=== PATIENT | male | born 1960 | race Caucasian/White ===

== ENCOUNTER 2022-07-15 07:35 | Day surgery (SDC) | payer OTHER ==
[2022-07-15] MEDS ORDERED: SODIUM CHLORIDE 0.9% 1,000 ML IV STA (07:49)
[2022-07-15 07:58] LABS: BASOPHILS % (AUTO) 0.2 %; EOSINOPHILS % (AUTO) 0.1 %; HCT - HEMATOCRIT 48.2 % (42.0-52.0); HGB - HEMOGLOBIN 16.4 g/dL (14.0-18.0); LYMPHOCYTES # (AUTO) 1.3 10^3/uL (1.5-3.5); LYMPHOCYTES % (AUTO) 7.8 %; MEAN CORPUSCULAR HEMOGLOBIN 29.9 pg (27.0-31.0); MONOCYTES # (AUTO) 0.9 10^3/uL (0.0-1.0); NEUTROPHILS # (AUTO) 14.8 10^3/uL (1.5-6.6); NEUTROPHILS % (AUTO) 86.6 %; PLT - PLATELET COUNT 338 10^3/uL (130-450); RED BLOOD COUNT 5.48 10^6/uL (4.70-6.10); RED CELL DISTRIBUTION WIDTH 12.8 % (12.0-15.0); WHITE BLOOD COUNT 17.2 x10^3/uL (4.8-10.8)
[2022-07-15 08:05] LABS: BILIRUBIN,URINE NEGATIVE (NEGATIVE); GLUCOSE, URINE (UA) NEGATIVE (NEGATIVE); KETONES,URINE (UA) 40 mg/dL (NEGATIVE); LEUKOCYTE ESTERASE, URINE NEGATIVE (NEGATIVE); NITRITE,URINE NEGATIVE (NEGATIVE); OCCULT BLOOD,URINE SMALL (NEGATIVE); PROTEIN,URINE NEGATIVE (NEGATIVE); UROBILINOGEN,URINE 0.2 (NORMAL) E.U./dL (NORMAL)
[2022-07-15 08:06] LABS: CLARITY,URINE CLEAR (CLEAR)
[2022-07-15] MEDS ORDERED: ONDANSETRON 4 MG/2 ML VIAL IVP STA (08:10)
[2022-07-15 08:12] LABS: ALBUMIN 4.7 g/dL (3.2-5.5); ALBUMIN/GLOBULIN RATIO 1.5 (1.0-2.2); BILIRUBIN,TOTAL 1.5 mg/dL (0.2-1.0); CALCIUM 9.3 mg/dL (8.5-10.3); CREATININE 0.8 mg/dL (0.6-1.2); POTASSIUM 3.3 mmol/L (3.5-5.0); TOTAL PROTEIN 7.9 g/dL (6.7-8.2)
[2022-07-15 08:17] LABS: BACTERIA,URINE Rare /HPF (None Seen); MUCUS,URINE Few Strands; RBC,URINE 0-5 /HPF (0-5); SQUAMOUS EPITHELIAL CELL,UR NONE SEEN (<= Few); WBC,URINE 0-3 /HPF (0-3)
--- NOTE | 2022-07-15 09:27 | CT Report ---
PROCEDURE: Abdomen/Pelvis W INDICATIONS: upper abd pain/N/V, leukocytosis, elev bili CONTRAST: IV CONTRAST: Optiray 320 ml: 100 PO CONTRAST: *NO PO CONTRAST TECHNIQUE: After the administration of IV contrast, 5 mm thick sections acquired from the diaphragms to the symp hysis. 5 mm thick coronal and sagittal reformats were acquired. For radiation dose reduction, the f ollowing was used: automated exposure control, adjustment of mA and/or kV according to patient size. COMPARISON: None. FINDINGS: Image quality: Excellent. ABDOMEN: Lung bases: Calcified nodules noted in the left base. Heart size is normal. Solid organs: Liver and spleen are normal in size and enhancement. Hepatic steatosis is present. Ga llbladder is unremarkable. Biliary system is non dilated. Pancreas enhances normally. No adrenal n odules. Kidneys demonstrate normal size and enhancement, without hydronephrosis. Peritoneum and bowel: Bowel loops demonstrate normal wall thickness and caliber. The appendix is enl arged measuring 1.2 cm. There is periappendiceal inflammatory change as well as an appendicolith. No evidence of rupture. Colonic diverticular present without associated inflammatory change. Nodes and vessels: No retroperitoneal or mesenteric adenopathy by size criteria. Aorta and inferior vena cava are normal in size. Miscellaneous: Fat-containing ventral hernia is present.. PELVIS: Genitourinary: Bladder wall thickness is normal. Miscellaneous: Fat-containing inguinal hernias are present. Bones: No suspicious bony lesions. No vertebral body compression fractures. IMPRESSION: The appendix is enlarged with inflammatory change and appendicolith most consistent with appendicitis . No rupture. Diverticulosis. The above findings were discussed with Dr. Lesley Escalante on 07/15/2022 at 9:23 AM. Reviewed by: Leyla Cruz MD on 07/15/2022 9:25 AM PDT Approved by: Leyla Cruz MD on 07/15/2022 9:25 AM PDT Station ID: [id number]
--- NOTE | 2022-07-15 09:35 | ED Physician Documentation ---
PD HPI ABD PAIN - Stated complaint Stated Complaint: ABD PAIN - Chief complaint Chief Complaint: Abd Pain - History obtained from History obtained from: Patient - Additional information Additional information: Pt comes to the ED for CC of nausea and upper abd pain for the past 2 days. No fevers or vomiting. No lower abd pain. Pt has a h/o HTN, but otherwise healthy. Review of Systems Ten Systems: 10 systems reviewed and negative Constitutional: reports: Reviewed and negative Eyes: reports: Reviewed and negative Ears: reports: Reviewed and negative Nose: reports: Reviewed and negative Throat: reports: Reviewed and negative Cardiac: reports: Reviewed and negative Respiratory: reports: Reviewed and negative GI: reports: Abdominal Pain, Nausea : reports: Reviewed and negative Skin: reports: Reviewed and negative Musculoskeletal: reports: Reviewed and negative Neurologic: reports: Reviewed and negative Psychiatric: reports: Reviewed and negative Endocrine: reports: Reviewed and negative Immunocompromised: reports: Reviewed and negative PD PAST MEDICAL HISTORY - Present Medications Home Medications: Ambulatory Orders Medication Instructions Recorded Confirmed Docusate Sodium 250Mg Capsule 250 mg PO DAILY #10 cap 07/15/22 [Colace 250Mg Capsule] HYDROcod/ACETAM 5/325 [[place] 5/325] 1 each PO Q4H PRN #10 tablet 07/15/22 Lisinopril [Zestril] 40 mg PO DAILY 07/15/22 07/15/22 hydroCHLOROthiazide [Hydrodiuril] 25 mg PO DAILY 07/15/22 07/15/22 - Allergies Allergies/Adverse Reactions: Allergies Allergy/AdvReac Type Severity Reaction Status Date / Time No Known Drug Allergies Allergy Verified 07/15/22 07:44 PD ED PE NORMAL - Vitals Vital signs reviewed: Yes - General General: Alert and oriented X 3, No acute distress, Well developed/nourished - HEENT HEENT: Atraumatic, PERRL, EOMI, Moist mucous membranes - Neck Neck: Supple, no meningeal sign - Cardiac Cardiac: RRR, No murmur - Respiratory Respiratory: No respiratory distress, Clear bilaterally - Abdomen Abdomen: Soft, Non distended, Other (moderate tenderness, upper abdomen) - Derm Derm: Warm and dry - Extremities Extremities: No deformity - Neuro Neuro: Alert and oriented X 3 - Psych Psych: Normal mood, Normal affect Results - Vitals Vitals: Oxygen O2 Source Room air - Labs Labs: Laboratory Tests 07/15/22 07/15/22 07/15/22 07:49 07:54 07:54 WBC 17.2 H RBC 5.48 Hgb 16.4 Hct 48.2 MCV 88.0 MCH 29.9 MCHC 34.0 RDW 12.8 Plt Count 338 MPV 9.0 Neut # (Auto) 14.8 H Lymph # (Auto) 1.3 L [place] # (Auto) 0.9 Eos # (Auto) 0.0 Baso # (Auto) 0.0 Absolute Nucleated RBC 0.00 Nucleated RBC % 0.0 Sodium 139 Potassium 3.3 L Chloride 98 L Carbon Dioxide 31 Anion Gap 10.0 BUN 17 Creatinine 0.8 Estimated GFR (MDRD) 98 Glucose 118 H Calcium 9.3 Total Bilirubin 1.5 H AST 19 ALT 18 Alkaline Phosphatase 73 Total Protein 7.9 Albumin 4.7 Globulin 3.2 Albumin/Globulin Ratio 1.5 Lipase 34 Urine Color DARK YELLOW Urine Clarity CLEAR Urine pH 6.0 Ur Specific [place] >=1.030 H Urine Protein NEGATIVE Urine Glucose (UA) NEGATIVE Urine Ketones 40 H Urine Occult Blood SMALL H Urine Nitrite NEGATIVE Urine Bilirubin NEGATIVE Urine Urobilinogen 0.2 (NORMAL) Ur Leukocyte Esterase NEGATIVE Urine RBC 0-5 Urine WBC 0-3 Ur Squamous Epith Cells NONE SEEN Urine Bacteria Rare Urine Mucus Few Strands Ur Microscopic Review INDICATED Urine Culture Comments NOT INDICATED Nasal Adenovirus (PCR) Nasal B. parapertussis DNA (PCR) Nasal Coronavir 229E PCR Nasal Coronavir HKU1 PCR Nasal Coronavir NL63 PCR Nasal Coronavir OC43 PCR Nasal Enterovir/Rhinovir PCR Nasal Influenza B PCR Nasal Influenza A PCR Nasal Parainfluen 1 PCR Nasal Parainfluen 2 PCR Nasal Parainfluen 3 PCR Nasal Parainfluen 4 PCR Nasal RSV (PCR) Nasal B.pertussis DNA PCR Nasal C.pneumoniae (PCR) Jamie Human Metapneumo PCR Nasal M.pneumoniae (PCR) Nasal SARS-CoV-2 (PCR) 07/15/22 11:00 WBC RBC Hgb Hct MCV MCH MCHC RDW Plt Count MPV Neut # (Auto) Lymph # (Auto) [place] # (Auto) Eos # (Auto) Baso # (Auto) Absolute Nucleated RBC Nucleated RBC % Sodium Potassium Chloride Carbon Dioxide Anion Gap BUN Creatinine Estimated GFR (MDRD) Glucose Calcium Total Bilirubin AST ALT Alkaline Phosphatase Total Protein Albumin Globulin Albumin/Globulin Ratio Lipase Urine Color Urine Clarity Urine pH Ur Specific [place] Urine Protein Urine Glucose (UA) Urine Ketones Urine Occult Blood Urine Nitrite Urine Bilirubin Urine Urobilinogen Ur Leukocyte Esterase Urine RBC Urine WBC Ur Squamous Epith Cells Urine Bacteria Urine Mucus Ur Microscopic Review Urine Culture Comments Nasal Adenovirus (PCR) NOT DETECTED Nasal B. parapertussis DNA (PCR) NOT DETECTED Nasal Coronavir 229E PCR NOT DETECTED Nasal Coronavir HKU1 PCR NOT DETECTED Nasal Coronavir NL63 PCR NOT DETECTED Nasal Coronavir OC43 PCR NOT DETECTED Nasal Enterovir/Rhinovir PCR NOT DETECTED Nasal Influenza B PCR NOT DETECTED Nasal Influenza A PCR NOT DETECTED Nasal Parainfluen 1 PCR NOT DETECTED Nasal Parainfluen 2 PCR NOT DETECTED Nasal Parainfluen 3 PCR NOT DETECTED Nasal Parainfluen 4 PCR NOT DETECTED Nasal RSV (PCR) NOT DETECTED Nasal B.pertussis DNA PCR NOT DETECTED Nasal C.pneumoniae (PCR) NOT DETECTED Jamie Human Metapneumo PCR NOT DETECTED Nasal M.pneumoniae (PCR) NOT DETECTED Nasal SARS-CoV-2 (PCR) NOT DETECTED - Rads (name of study) CT abd/pelvis Radiology: Final report received, EMP read indepedently, See rad report (appendicitis) PD MEDICAL DECISION MAKING - ED course Complexity details: reviewed results, re-evaluated patient, considered differential, d/w patient ED course: The pt was worked up with labs and CT, and found to have a significant leukocytosis and final CT read of "appendicitis". I spoke with Dr. Kearns, who was demolitionist for surgery, and he agreed to take the pt to OR. The findings were discussed with the pt, who was feeling well after IV fluids and Zofran, and he was agreeable to the plan. Departure - Departure Disposition: ED Transfer to [facility] Clinical Impression: Appendicitis Qualifiers: Appendicitis type: acute appendicitis Acute appendicitis type: unspecified acute appendicitis type Qualified Code(s): K35.80 - Unspecified acute appendicitis Condition: Serious Discharge Date/Time: 07/15/22 11:22
[2022-07-15] MEDS ORDERED: BUPIVACAINE 0.5% PF 30 ML VIAL INFIL ONE (10:56)
--- NOTE | 2022-07-15 10:56 | CONSULTATION NOTE ---
Referring Provider Name of Referring Provider:: Lesley Escalante MD Consult Date: 07/15/22 Chief Complaint - Chief Complaint Chief Complaint: Abdominal pain with lab and radiology confirming acute appendicitis History of Present Illness - History Obtained From Records Reviewed: Yes History obtained from: Patient Exam Limitations: None - History of Present Illness HPI Comment/Other: Lesley Escalante MD requested that I see this exceedingly pleasant 61-year-old male with the signs and symptoms of acute appendicitis and after labs and x-rays were performed the diagnosis was confirmed. In speaking to the patient, he states that symptoms probably started several days ago but worsened yesterday. This was described as a band of pain across his upper abdomen just above his umbilicus. This was associated with nausea but there was no vomiting. There is no constipation or diarrhea. The pain became severe enough that he could not sleep throughout the night and slept in only 15-minute increments. He still states that the pain is present at and around the umbilicus but a little bit worse on the right than on the left. He has plans to go golfing at [employer] at the start of August. I explained that he will be making that date. He normally lives in [place] and is currently staying with friends here on [facility]. Apparently one of the people he is staying with graduated at the [facility] which is where I graduated as well. History - Past Medical History Cardiovascular: reports: Hypertension Respiratory: reports: None Neuro: reports: None Endocrine/Autoimmune: reports: None GI: reports: None TOOTH GRINDER: reports: None (Not applicable) : reports: None HEENT: reports: None Psych: reports: None Musculoskeletal: reports: None Derm: reports: None MRSA Hx?: No - Past Surgical History General: reports: Colonoscopy (X3) Meds/Allgy - Home Medications Home Medications: Ambulatory Orders Medication Instructions Recorded Confirmed Lisinopril [Zestril] 07/15/22 hydroCHLOROthiazide [Hydrodiuril] 07/15/22 07/15/22 - Allergies Allergies/Adverse Reactions: Allergies Allergy/AdvReac Type Severity Reaction Status Date / Time No Known Drug Allergies Allergy Verified 07/15/22 07:44 Review of Systems - Constitutional Constitutional: reports: Malaise (Over the past several days). denies: Fatigue - Eyes Eyes: denies: Pain - Ears, Nose & Throat Ears, Nose & Throat: denies: Ear pain - Cardiovascular Cariovascular: denies: Irregular heart rate, Palpitations, Chest pain - Respiratory Respiratory: denies: Cough, Sputum production, Wheezing - Gastrointestinal Gastrointestinal: reports: Abdominal pain, Nausea. denies: Constipation, Diarrhea, Vomiting - Genitourinary Genitourinary: denies: Dysuria - Integumentary Integumentary: denies: Rash - Neurological Neurological: denies: General weakness Exam - Vital Signs Reviewed Vital Signs: Yes Vital Signs: Vital Signs x48h Temp Pulse Resp BP Pulse Ox 07/15/22 09:44 37.0 C 74 18 137/81 H 97 07/15/22 07:42 36 C L 86 16 139/76 H 100 - Physical Exam General Appearance: positive: No acute distress Eyes Bilateral: positive: No lid inflammation, Conjunctivae nml, No scleral icterus ENT: positive: No signs of dehydration, Other ([place] and mustache, Mallampati 1) Neck: positive: Trachea midline Respiratory: positive: Chest non-tender, No respiratory distress, Breath sounds nml Cardiovascular: positive: Regular rate & rhythm, No murmur, No gallop Abdomen: positive: Tenderness (Slightly more right than left. Positive Rovsing sign. No psoas sign. No obturator sign. Minimal peritoneal findings. Decre ased bowel sounds.) Skin: positive: Color nml, No rash, Warm, Dry Neurologic/Psychiatric: positive: Oriented x3, Motor nml, Sensation nml, Mood/affect nml Conclusion/Plan - Lab Results Lab results reviewed: Yes Fish Bones: 07/15/22 07:54 07/15/22 07:54 - Diagnostic Imaging Results Diagnostic Imaging Results: positive: Final report reviewed, Read independently Diagnostic Imaging Results Comments: Findings consistent with acute nonruptured appendicitis. - Other Other Results/Comments: Laparoscopic appendectomy, possible open appendectomy. The indications, procedure, alternatives including no procedure, and possible complications including but not limited to infection (approximately 2 to 5% if not ruptured and up to 33% if ruptured), bleeding with all of its risks, and were fully explained to the patient and all questions answered. Verbal and written consent was obtained. The patient in preparation for surgery will be maintained n.p.o., receive IV antibiotics, and have TEDs and Venodyne's placed for prophylaxis against deep venous thrombosis. If the appendix is nonruptured, I anticipate being able to send him home postoperatively. The expected postoperative course was discussed with the patient at length and instructions w ere given for him to be able to walk, climb stairs, lift less than 15 pounds (for 6 weeks after which lifting is not limited), shower, hot tub, swim, tolerate general diet, have sex. I have asked him to let me know if there is any way we can make his stay at [facility] more comfortable. I have also asked him to contact me with any questions and/or concerns that he may have. He stated that he would. 45 minutes of [id number] time as well as chart time were required to prepare the patient for surgery CPT 17758 This document was created in part using voice recognition technology. Because of the inherent limitations of the system, occasional same sounding word substitutions and grammatical errors do occur and persist despite proofreading. Please read this document for content.
--- NOTE | 2022-07-15 11:09 | ANESTHESIA ---
Pre-Anesthesia VS, & Labs - Diagnosis appendicitis - Procedure laparoscopic appendectomy Vital Signs: Temp Pulse Resp BP Pulse Ox 37.0 C 83 18 146/84 H 96 07/15/22 09:44 07/15/22 11:00 07/15/22 11:00 07/15/22 11:00 07/15/22 11:00 Height: 5 ft 9 in Weight (kg): 87.9 kg Body Mass Index: 28.6 BMI Classification: Overweight - NPO >8 hours - Lab Results Current Lab Results: Laboratory Tests 07/15/22 07:54: Sodium 139, Potassium 3.3 L, Chloride 98 L, Carbon Dioxide 31, Anion Gap 10.0, BUN 17, Creatinine 0.8, Estimated GFR (MDRD) 98, Glucose 118 H, Calcium 9.3, Total Bilirubin 1.5 H, AST 19, ALT 18, Alkaline Phosphatase 73, Total Protein 7.9, Albumin 4.7, Globulin 3.2, Albumin/Globulin Ratio 1.5, Lipase 34 07/15/22 07:54: WBC 17.2 H, RBC 5.48, Hgb 16.4, Hct 48.2, MCV 88.0, MCH 29.9, MCHC 34.0, RDW 12.8, Plt Count 338, MPV 9.0, Neut # (Auto) 14.8 H, Lymph # (Auto) 1.3 L, [place] # (Auto) 0.9, Eos # (Auto) 0.0, Baso # (Auto) 0.0, Absolute Nucleated RBC 0.00, Nucleated RBC % 0.0 Fish Bones: 07/15/22 07:54 07/15/22 07:54 Home Medications and Allergies Home Medications: Ambulatory Orders Lisinopril [Zestril] 07/15/22 hydroCHLOROthiazide [Hydrodiuril] 07/15/22 Lisinopril [Zestril] 07/15/22 hydroCHLOROthiazide [Hydrodiuril] 07/15/22 Allergies/Adverse Reactions: Allergies Allergy/AdvReac Type Severity Reaction Status Date / Time No Known Drug Allergies Allergy Verified 07/15/22 07:44 Anes History & Medical History - Anesthetic History Anesthesia Complications: reports: No previous complications - Medical History Cardiovascular: reports: Hypertension Pulmonary: reports: None Gastrointestinal: reports: None Urinary: reports: None Neuro: reports: None Musculoskeletal: reports: None Endocrine/Autoimmune: reports: None Skin: reports: None Smoking Status: Never smoker History of Cancer?: No - Surgical History General: reports: Colonoscopy (X3) Exam General: Alert, Oriented x3 Dental: WNL Mouth Opening: Greater than 4 Fingerbreadths Neck Mobility: Normal Mallampati classification: I Respiratory: Lungs clear Cardiovascular: Regular rate Plan Anesthesia Type: General Consent for Procedure(s) Verified and Reviewed: Yes Code Status: Attempt Resuscitation ASA classification: 2-Mild systemic disease Is this case an emergency?: Yes
[2022-07-15] MEDS ORDERED: BUPIVACAINE 0.5% PF 30 ML VIAL ONE (11:14)
[2022-07-15] MEDS ORDERED: LIDOCAINE-MPF 2% 5 ML VIAL ONE (11:16)
[2022-07-15] MEDS ORDERED: PROPOFOL 200 MG/20 ML VIAL IVP ONE (11:16)
[2022-07-15] MEDS ORDERED: ONDANSETRON 4 MG/2 ML VIAL ONE (11:16)
[2022-07-15] MEDS ORDERED: DEXAMETHASONE 4 MG/ML VIAL ONE (11:16)
[2022-07-15] MEDS ORDERED: ROCURONIUM 50 MG/5 ML VIAL ONE (11:16)
[2022-07-15] MEDS ORDERED: MIDAZOLAM 2 MG/2 ML VIAL ONE (11:19)
[2022-07-15] MEDS ORDERED: fentaNYL 100 MCG/2 ML VIAL ONE ×2 (11:20→12:37)
[2022-07-15 11:58] LABS: CORONAVIRUS 229E-RESP PCR NOT DETECTED; CORONAVIRUS HKU1-RESP PCR NOT DETECTED; CORONAVIRUS NL63-RESP PCR NOT DETECTED
[2022-07-15 11:59] LABS: B. PARAPERTUSSIS- RESP PCR PAN NOT DETECTED; B. PERTUSSIS- RESP PCR PANEL NOT DETECTED; C. PNEUMONIAE- RESP PCR PANEL NOT DETECTED; CORONAVIRUS OC43-RESP PCR NOT DETECTED; HUMAN METAPNEUMOVIRUS NOT DETECTED; INFLUENZA A- RESP PCR PANEL NOT DETECTED; INFLUENZA B - RESP PCR PANEL NOT DETECTED; M. PNEUMONIAE- RESP PCR PANEL NOT DETECTED; PARAINFLUENZA VIRUS 1 NOT DETECTED; PARAINFLUENZA VIRUS 2 NOT DETECTED; PARAINFLUENZA VIRUS 3 NOT DETECTED; PARAINFLUENZA VIRUS 4 NOT DETECTED; RHINOVIRUS/ENTEROVIRUS NOT DETECTED; RSV- RESP PCR PANEL NOT DETECTED; SARS-CoV-2 -RESP PCR PANEL NOT DETECTED
[2022-07-15] MEDS ORDERED: ACETAMINOPHEN 1,000 MG/100 ML 1,000 MG/100 ML BAG IV ONE (12:13)
[2022-07-15] MEDS ORDERED: KETOROLAC 30 MG/ML VIAL ONE (12:21)
[2022-07-15] MEDS ORDERED: LACTATED RINGERS 1,000 ML IV ONE (12:42)
[2022-07-15] MEDS ORDERED: HYDROmorphone 0.5 MG/0.5 ML SYRINGE IVP PRN ×2 (12:52→12:54)
[2022-07-15] MEDS ORDERED: HYDROcod/ACETAM 5/325 MG TABLET PO PRN (12:52)
[2022-07-15] MEDS ORDERED: ONDANSETRON 4 MG/2 ML VIAL IVP PRN ×2 (12:52→12:54)
[2022-07-15] MEDS ORDERED: METOCLOPRAMIDE 10 MG/2 ML VIAL IVP PRN (12:54)
[2022-07-15] MEDS ORDERED: ATROPINE ABBOJECT 1 MG/10 ML SYRINGE IVP PRN (12:54)
[2022-07-15] MEDS ORDERED: ePHEDrine 50 MG/ML VIAL IVP PRN (12:54)
[2022-07-15] MEDS ORDERED: MORPHINE 2 MG/ML CARPUJECT IVP PRN (12:54)
[2022-07-15] MEDS ORDERED: fentaNYL 100 MCG/2 ML VIAL IVP PRN (12:54)
[2022-07-15] MEDS ORDERED: NALOXONE 0.4 MG/ML VIAL IVP PRN (12:54)
--- NOTE | 2022-07-15 12:58 | OPERATIVE REPORT ---
Operative Report - General Procedure Date: 07/15/22 Planned Procedure: Laparoscopic appendectomy, possible open appendectomy Pre-Op Diagnosis: Acute appendicitis Procedure Performed: Laparoscopic appendectomy and umbilical herniorrhaphy Post Op Diagnosis: Acute necrotic appendicitis and umbilical hernia - Procedure Note Primary Surgeon: Reggie Kearns MD Anesthesia Provider: Roxana Camejo CRNA Anesthesia Technique: General ET tube, Local (30 mL of half percent Marcaine) IV Fluids (mL): 1,000 Estimated Blood Loss (mL): 5 Drain/Tube Type: Other (None.) Indications: Acute appendicitis by history and confirmed by laboratory values and radiologic findings. Findings: Necrotic appendix and umbilical hernia Complications: None. - Other Other Information/Narrative: After verbal and written informed consent was obtained detailing the operation, the alternatives to the operation including no operation, risks of infection, bleeding requiring transfusion with its risks, nerve injury, and and after I met with the patient confirming the surgery, the patient was brought to the operative suite and placed supine on the operating table. Great care was taken to avoid pressure points to prevent pressure necrosis or nerve injury. Monitoring devices were applied along with TEDs and pneumatic compressive stockings (to prevent DVT). The patient received preoperative antibiotics for surgical prophylaxis. Roxana Camejo CRNA, CRNA sedated and anesthetized the patient for the entire procedure. The patient was prepped and draped in usual sterile manner. A "time in" then confirmed that the patient was identified with 3 identifiers (name, date, and medical record number), the history and physical was in the chart, the signed consent confirming the procedure was in the chart, the patient was in the correct position, the aforementioned prophylactic measures were in place were given, we had the correct personnel and equipment to complete the procedure and that anesthesia, and the surgical team was given an opportunity to express any concerns. With the agreement of everyone in the room, we proceeded with the operation. The initial incision was at the umbilicus and dissection posteriorly revealed an umbilical hernia. The contents of the sac which were fat were excised using Bovie electrocautery. The peritoneum was grasped and incised using Metzenbaum scissors. In this location, a 12 mm blunt tipped, balloon tipped port was placed and the balloon was inflated to keep the port in position. The abdominal cavity was insufflated with carbon dioxide to a steady-state pressure of 15 mmHg. 2 additional 5 mm ports were placed in standard locations for laparoscopic appendectomy (above and below the umbilicus at the midline) under direct vision of the 30 degree laparoscope and without incident. The patient was then placed in Trendelenburg position and was rotated slightly to their left. Examination of the right lower quadrant revealed a thickened and clearly infected/inflamed/necrotic appendix with fibrinous exudate. This was carefully grasped to avoid rupture and the appendiceal mesentery was taken using sequential application of the LigaSure. Once the base of the appendix was encountered the appendix was transected using a laparoscopic KRYSTEN stapler with a GI load that had been placed through the umbilical port and the camera was switched to a 5 mm camera and placed through one of the 5 mm ports. Examination of the staple line noted to be intact without leak or bleeding. An Endopouch was placed through the umbilical port and the appendix was placed into the Endopouch and the Endopouch was secured. The left right lower quadrant was then copiously irrigated using 2 L of warm sterile saline. I injected the port sites at the peritoneal, fascial, and skin levels under direct vision with 0.5% Marcaine. All ports and the Endopouch containing the appendix were removed. Please note that the appendix was particularly foul-smelling likely due to its necrotic nature. Following appendiceal removal, the remaining carbon dioxide was expelled from the abdomen. The fascia the umbilicus was approximated using 2 [id number] 0 Vicryl sutures thus repairing the umbilical hernia. The skin at each port site was approximated using a subcuticular 4-0 Monocryl. The skin was cleaned of its prep and Dermabond was applied. At this point a "timeout" was performed that confirmed that all counts were correct, the procedure that was performed, the blood loss, the IV fluids administered, the patient's condition and any concerns of the operating team had. Dressings were then applied. Having tolerated the procedure well, the patient was extubated and taken to recovery room in good and stable condition. The plan is for outpatient discharge when the patient is adequately recovered. CPT 99355 CPT 92269 This document was created in part using voice recognition technology. Because of the inherent limitations of the system, occasional same sounding word substitutions and grammatical errors do occur and persist despite proofreading. Please read this document for context.
[2022-07-15] MEDS ORDERED: LACTATED RINGERS 1,000 ML IV SCH (13:00)
--- NOTE | 2022-07-15 13:26 | ANESTHESIA POST OP EVALUATION ---
Anesthesia Post Eval - Post Anesthesia Eval Vitals: Last Vital Signs Temp 36.6 C 07/15/22 13:10 Pulse 76 07/15/22 13:10 Resp 16 07/15/22 13:10 BP 122/70 07/15/22 13:10 Pulse Ox 99 07/15/22 13:10 CV Function Including HR & BP: Stable Pain Control: Satisfactory Nausea & Vomiting: Negative Mental Status: Baseline Respiratory Status: Airway Patent Hydration Status: Satisfactory Anesthesia Complications: None
[2022-07-15 13:40] VITALS: BP 113/62
== END 2022-07-15 15:23 | disposition home or self-care (01) ==
LOC: ED 07:35 → SDS 10:40 → MS2 12:36 → SDS 15:23
PROVIDERS: ATTEND Surgery
PROC: 0DTJ4ZZ Resection of Appendix, Percutaneous Endoscopic Approach (ICD-10-PCS; principal; 2022-07-15 11:30)
DX: K35.890 Other acute appendicitis without perforation or gangrene (principal); K42.9 Umbilical hernia without obstruction or gangrene; Z20.822 Contact with and (suspected) exposure to COVID-19
CPT/HCPCS: 36415; 44970; 74177; 80053; 81001; 83690; 85025; 87633; 96374; 99283; 99285; J0131; J7120; Q9967; 81003; 87086